=== PATIENT | male | born 1975 ===

== ENCOUNTER 2016-10-14 02:27 | Observation (INO) | payer SELFPAY ==
[2016-10-14] MEDS ORDERED: HYDROmorphone 2 mg/ml ISec IVP STA (03:26)
[2016-10-14] MEDS: Sodium Chloride 0.9% 1,000 ML IV SCH (03:37)
[2016-10-14 03:40] LABS: ADD MANUAL DIFF? NO
--- NOTE | 2016-10-14 03:41 | ED PDOC ---
Arrival/HPI - General Chief Complaint: Abdominal Pain Time Seen by Provider: 10/14/16 03:23 Historian: Patient - History of Present Illness Narrative History of Present Illness (Text): 10/14/16 03:25 Mahesh Ya is a 40 year old male who presents to the Emergency department complaining of RUQ pain. Patient reports associated subjective fever, chills, and shortness of breath. Patient denies any chest pain, nausea, vomiting, diarrhea, urinary symptoms, back pain, neck pain, headache, dizziness, or any other complaints. Symptom Onset: Gradual Symptom Course: Unchanged Activities at Onset: Rest, Light Context: Home Past Medical History - Provider Review Nursing Documentation Reviewed: Yes - Psychiatric Hx Substance Use: No Family/Social History - Physician Review Nursing Documentation Reviewed: Yes Family/Social History: No Known Family HX Smoking Status: n Hx Alcohol Use: Yes Hx Substance Use: No Allergies/Home Meds Allergies/Adverse Reactions: Allergies No Known Allergies Allergy (Verified 10/14/16 02:42) Home Medications: Home Meds Medication Instructions Recorded Confirmed No Known Home Med 10/14/16 10/14/16 Review of Systems - Physician Review All systems were reviewed & negative as marked: Yes - Review of Systems Constitutional: Fevers, Other (+chills) Eyes: Normal ENT: Normal Respiratory: SOB Cardiovascular: Normal. absent: Chest Pain Gastrointestinal: Abdominal Pain. absent: Diarrhea, Nausea, Vomiting Genitourinary Male: Normal. absent: Dysuria, Frequency, Hematuria, Urinary Output Changes Musculoskeletal: Normal. absent: Back Pain, Neck Pain Skin: Normal. absent: Rash Neurological: Normal. absent: Headache, Dizziness Endocrine: Normal Hemo/Lymphatic: Normal Psychiatric: Normal Physical Exam Vital Signs Reviewed: Yes Vital Signs Temp Pulse Resp BP Pulse Ox 10/14/16 05:13 86 18 126/86 96 10/14/16 02:36 97.9 F 98 H 18 132/70 98 Temperature: Afebrile Blood Pressure: Normal Pulse: Regular Respiratory Rate: Normal Appearance: Positive for: Well-Appearing, Non-Toxic, Comfortable Pain Distress: None Mental Status: Positive for: Alert and Oriented X 3 - Systems Exam Head: Present: Atraumatic, Normocephalic Pupils: Present: PERRL Extroacular Muscles: Present: EOMI Conjunctiva: Present: Normal Mouth: Present: Moist Mucous Membranes Neck: Present: Normal Range of Motion Respiratory/Chest: Present: Clear to Auscultation, Good Air Exchange. No: Respiratory Distress, Accessory Muscle Use Cardiovascular: Present: Regular Rate and Rhythm, Normal S1, S2. No: Murmurs Abdomen: Present: Tenderness (RUQ tenderness), Normal Bowel Sounds. No: Distention, Peritoneal Signs Back: Present: Normal Inspection Upper Extremity: Present: Normal Inspection. No: Cyanosis, Edema Lower Extremity: Present: Normal Inspection. No: Edema Neurological: Present: GCS=15, CN II-XII Intact, Speech Normal Skin: Present: Warm, Dry, Normal Color. No: Rashes Psychiatric: Present: Alert, Oriented x 3, Normal Insight, Normal Concentration Medical Decision Making ED Course and Treatment: 10/14/16 03:25 Impression: 40 year old male complaining of RUQ pain, fever, chills, and shortness of breath. Plan: -- CT Abdomen and Pelvis w/o contrast -- EKG -- Labs, cardiac enzymes, amylase, lipase, blood cultures, VBG -- UA -- IV fluids -- Zofran -- Dilaudid -- Reassess and disposition Prior Visits: Notes and results from previous visits were reviewed. Progress Notes: Reviewed EKG, NSR at [address]-segment elevations or depressions, no T-wave inversions, normal intervals. 10/14/16 05:09 Reviewed radiology, CT Abdomen and Pelvis shows: 1. Diverticulosis without definite CT evidence of diverticulitis. 2. Mild splenomegaly. 3. Incidental/non-acute findings are described above. 10/14/16 05:10 Case discussed with center medical director traffic sign erection supervisor, who is aware and agrees with plan, 10/14/16 05:[address] Singleton, who is aware and agrees with plan. Accepts pt in to hospitalist service. Pt will go to [facility] observation for abdominal pain and leukocytosis. - Lab Interpretations Microbiology Results: Microbiology Results 10/14/16 03:40 Blood-Venous Blood Culture - Preliminary NO GROWTH AFTER 48 HOURS 10/14/16 03:20 Blood-Venous Blood Culture - Preliminary NO GROWTH AFTER 48 HOURS Lab Results: 10/14/16 03:20 10/14/16 03:20 Lab Results 10/14/16 03:26: Urine Color Yellow, Urine Appearance Clear, Urine pH 6.0, Ur Specific [place] 1.015, Urine Protein Negative, Urine Glucose (UA) Negative, Urine Ketones Negative, Urine Blood Negative, Urine Nitrate Negative, Urine Bilirubin Negative, Urine Urobilinogen 0.2, Ur Leukocyte Esterase Negative 10/14/16 03:20: Sodium 140, Chloride 105, Potassium 3.7, Carbon Dioxide 26, Anion Gap 13, BUN 12, Creatinine 0.9, Est GFR ( Amer) > 60, Est GFR (Non- Af Amer) > 60, Random Glucose 110, Calcium 9.4, Total Bilirubin 0.7, AST 29, ALT 40, Alkaline Phosphatase 55, Lactate Dehydrogenase 359, Total Creatine Kinase 83, Troponin I < 0.01, Total Protein 7.6, Albumin 4.4, Globulin 3.2, Albumin/Globulin Ratio 1.4, Amylase 83, Lipase 184 10/14/16 03:20: pO2 47, VBG pH 7.33, VBG pCO2 50.0, VBG HCO3 26.4, VBG Total CO2 27.9, VBG O2 Sat (Calc) 86.5 H, VBG Base Excess -0.4 L, VBG Potassium 3.8, Sodium 141.0, Chloride 111.0 H, Glucose 108, Lactate 1.8, FiO2 21.0, Venous Blood Potassium 3.8 10/14/16 03:20: PT 10.0, INR 0.93, APTT 26.9 10/14/16 03:20: WBC 11.5 H, RBC 5.36, Hgb 14.7, Hct 41.9 L, MCV 78.2 L, MCH 27.4 , MCHC 35.1, RDW 13.3, Plt Count 203, MPV 12.4 H, Gran % 68.9 H, Lymph % (Auto) 21.8 L, [place] % (Auto) 5.4, Eos % (Auto) 3.4, Baso % (Auto) 0.5, Gran # 7.94 H, Lymph # 2.5, [place] # 0.6, Eos # 0.4, Baso # 0.06 I have reviewed the lab results: Yes - RAD Interpretation Narrative RAD Interpretations (Text): CT Abdomen and Pelvis shows: Lower thorax: No acute findings. ABDOMEN: Liver: Unremarkable. Gallbladder and bile ducts: No calcified stones. No ductal dilation. Pancreas: Unremarkable. No ductal dilation. Spleen: Mild splenomegaly. Adrenals: No mass. Kidneys and ureters: No renal calculi. No hydronephrosis. Stomach and bowel: Few scattered diverticula within colon. No associated inflammatory stranding. No definite mural thickening. No obstruction. Appendix: Normal caliber. No inflammation. PELVIS: Bladder: Unremarkable. No stones. Reproductive: Unremarkable as visualized. ABDOMEN and PELVIS: Intraperitoneal space: No significant fluid collection. No free air. Bones/joints: No acute fracture. Soft tissues: Tiny RIGHT inguinal hernia containing fat. Tiny umbilical hernia containing fat. Vasculature: Unremarkable. No abdominal aortic aneurysm. Lymph nodes: No pathologically enlarged lymph nodes. IMPRESSION: 1. Diverticulosis without definite CT evidence of diverticulitis. 2. Mild splenomegaly. 3. Incidental/non-acute findings are described above. Radiology Orders: 10/14/16 03:25 ABD & PELVIS W/O PO OR IV CONT [CT] Stat Restaurant Kitchen Manager: Radiologist - EKG Interpretation Interpreted by ED Physician: Yes Type: 12 lead EKG - Medication Orders Current Medication Orders: Discontinued Medications Acetaminophen (Tylenol 325mg Tab) 650 mg PO Q6H PRN PRN Reason: Fever >100.4 F Last Admin: 10/14/16 12:53 Dose: 650 mg Re-Assess: [facility] Pain/Vitals Document 10/14/16 13:53 EP (Rec: 10/14/16 14:12 EP [id number]) Sleep Is patient sleeping during reassessment? No Presence of Pain Presence of Pain No Famotidine (Pepcid) 20 mg PO BID [facility] Last Admin: 10/15/16 11:14 Dose: 20 mg Hydromorphone HCl (Dilaudid) 2 mg IVP STAT STA Stop: 10/14/16 03:27 Last Admin: 10/14/16 03:38 Dose: 2 mg Re-Assess: [facility] Pain Assessment Document 10/14/16 04:38 RD (Rec: 10/14/16 05:53 RD [id number]) Pain Reassessment Is this a pain reassessment? Yes Sleep Is patient sleeping during reassessment? No Presence of Pain Presence of Pain No Sodium Chloride (Sodium Chloride 0.9%) 1,000 mls @ 80 mls/hr IV [id number] [facility] Last Admin: 10/15/16 06:00 Dose: 80 mls/hr Ciprofloxacin (Cipro 400mg/200ml Dsw) 400 mg in 200 mls @ 133.3 mls/hr IVPB Q12 CINDY PRN Reason: Protocol Stop: 10/14/16 11:31 Last Admin: 10/14/16 10:17 Dose: 133.3 mls/hr Metronidazole (Flagyl) 500 mg in 100 mls @ 100 mls/hr IVPB Q8 CINDY PRN Reason: Protocol Last Admin: 10/15/16 06:00 Dose: 100 mls/hr Ketorolac Tromethamine (Toradol) 30 mg IVP Q8H PRN PRN Reason: Pain, severe (8-10) Last Admin: 10/14/16 18:19 Dose: 30 mg Re-Assess: [facility] Pain Assessment Document 10/14/16 19:19 EP (Rec: 10/14/16 22:03 EP [id number]) Pain Reassessment Is this a pain reassessment? Yes Sleep Is patient sleeping during reassessment? No Presence of Pain Presence of Pain No Morphine Sulfate (Morphine) 2 mg IVP Q6H PRN PRN Reason: Pain, severe (8-10) Last Admin: 10/14/16 08:51 Dose: 2 mg Re-Assess: [facility] Pain Assessment Document 10/14/16 09:51 EP (Rec: 10/14/16 10:18 EP [id number]) Pain Reassessment Is this a pain reassessment? Yes Sleep Is patient sleeping during reassessment? No Presence of Pain Presence of Pain No Ondansetron HCl (Zofran Inj) 4 mg IVP STAT STA Stop: 10/14/16 03:27 Last Admin: 10/14/16 03:38 Dose: 4 mg Ondansetron HCl (Zofran Inj) 8 mg IVP Q6H PRN PRN Reason: Nausea/Vomiting - Scribe Statement The provider has reviewed the documentation as recorded by the Scriberic Mccain All medical record entries made by the Scribe were at my direction and personally dictated by me. I have reviewed the chart and agree that the record accurately reflects my personal performance of the history, physical exam, medical decision making, and the department course for this patient. I have also personally directed, reviewed, and agree with the discharge instructions and disposition. Disposition/Present on Arrival - Present on Arrival Any Indicators Present on Arrival: No History of DVT/PE: No History of Uncontrolled Diabetes: No Urinary Catheter: No History of Decub. Ulcer: No History Surgical Site Infection Following: None - Disposition Have Diagnosis and Disposition been Completed?: Yes Diagnosis: Abdominal pain Disposition: HOSPITALIZED Disposition Time: 05:20 Condition: FAIR
[2016-10-14 03:45] LABS: BASO # 0.06 K/mm3 (0.0-2.0); BASO % 0.5 % (0.0-3.0); EOS # 0.4 (0.0-0.7); EOS % 3.4 % (1.5-5.0); GRAN # 7.94 (1.4-6.5); GRAN % 68.9 % (50.0-68.0); HEMATOCRIT 41.9 % (42.0-52.0); LYMPH # 2.5 (1.2-3.4); LYMPH % 21.8 % (22.0-35.0); MEAN CELL VOLUME 78.2 fL (80.0-105.0); MEAN CORPUSCULAR HEMOGLOBIN 27.4 pg (25.0-35.0); MEAN CORPUSCULAR HGB CONC 35.1 g/dl (31.0-37.0); MEAN PLATELET VOLUME 12.4 fl (7.0-11.0); MONO # 0.6 (0.1-0.6); MONO % 5.4 % (1.0-6.0); PLATELET COUNT 203 10^3/uL (120.0-450.0); RED CELL DISTRIBUTION WIDTH 13.3 % (11.5-14.5); WHITE BLOOD COUNT 11.5 10^3/ul (4.5-11.0)
[2016-10-14 03:57] LABS: VENOUS BLOOD GAS BASE EXCESS -0.4 mmol/L (0.0-2.0); VENOUS BLOOD PH 7.33 (7.32-7.43)
[2016-10-14 04:02] LABS: URINE BILIRUBIN NEGATIVE (NEGATIVE); URINE BLOOD NEGATIVE (NEGATIVE); URINE GLUCOSE (UA) NEGATIVE (NEGATIVE); URINE KETONE NEGATIVE (NEGATIVE); URINE LEUKOCYTE ESTERASE NEGATIVE Leu/uL (NEGATIVE); URINE PROTEIN NEGATIVE mg/dL (<30 mg/dL); URINE UROBILINOGEN 0.2 E.U./dL (<1 E.U./dL)
[2016-10-14 04:03] LABS: URINE APPEARANCE CLEAR (CLEAR); URINE COLOR YELLOW (YELLOW)
[2016-10-14 04:04] LABS: INR 0.93 (0.93-1.08); PARTIAL THROMBOPLASTIN TIME 26.9 Seconds (23.7-30.8)
[2016-10-14 04:08] LABS: ALB/GLOB RATIO 1.4 (1.1-1.8); ALKALINE PHOSPHATASE 55 U/L (38-133); ALT/SGPT 40 U/L (7-56); AMYLASE 83 U/L (35-125); AST/SGOT 29 U/L (15-59); BILIRUBIN,TOTAL 0.7 mg/dL (0.2-1.3); BLOOD UREA NITROGEN 12 mg/dL (7-21); CALCIUM 9.4 mg/dL (8.4-10.5); CARBON DIOXIDE 26 mmol/L (21-33); CHLORIDE 105 mmol/L (98-107); GFR AFRICAN-AMERICAN > 60; GLUCOSE,RANDOM 110 mg/dL (70-110); LIPASE 184 U/L (23-300); POTASSIUM 3.7 mmol/L (3.6-5.0); SODIUM 140 mmol/L (132-148); TOTAL PROTEIN 7.6 g/dL (5.8-8.3)
--- NOTE | 2016-10-14 04:39 | CT ---
EXAM: CT Abdomen and Pelvis Without Intravenous Contrast CLINICAL HISTORY: 40 years old, male; Pain; Abdominal pain; Generalized; Additional info: Abd pain TECHNIQUE: Axial computed tomography images of the abdomen and pelvis without intravenous contrast. This CT exam was performed using one or more of the following dose reduction techniques: automated exposure control, adjustment of the mA and/or kV according to patient size, and/or use of iterative reconstruction technique. Coronal and sagittal reformatted images were created and reviewed. COMPARISON: No relevant prior studies available. FINDINGS: Lower thorax: No acute findings. ABDOMEN: Liver: Unremarkable. Gallbladder and bile ducts: No calcified stones. No ductal dilation. Pancreas: Unremarkable. No ductal dilation. Spleen: Mild splenomegaly. Adrenals: No mass. Kidneys and ureters: No renal calculi. No hydronephrosis. Stomach and bowel: Few scattered diverticula within colon. No associated inflammatory stranding. No definite mural thickening. No obstruction. Appendix: Normal caliber. No inflammation. PELVIS: Bladder: Unremarkable. No stones. Reproductive: Unremarkable as visualized. ABDOMEN and PELVIS: Intraperitoneal space: No significant fluid collection. No free air. Bones/joints: No acute fracture. Soft tissues: Tiny RIGHT inguinal hernia containing fat. Tiny umbilical hernia containing fat. Vasculature: Unremarkable. No abdominal aortic aneurysm. Lymph nodes: No pathologically enlarged lymph nodes. IMPRESSION: 1. Diverticulosis without definite CT evidence of diverticulitis. 2. Mild splenomegaly. 3. Incidental/non-acute findings are described above.
[2016-10-14 04:54] LABS: TROPONIN I < 0.01 ng/mL
--- NOTE | 2016-10-14 05:33 | CP.PCM.HP ---
<Jose RAsad jenkins - Last Filed: 10/14/16 06:10> History of Present Illness - History of Present Illness History of Present Illness: This pt is a 40yo M w/ no PMHx (has not been to the dr in many years) who is coming to the hospital for a 2d history of RUQ pain. The patient states that it was intermittent, associated with nausea, and was dull in nature. He has also had loose stools, x4, for the past 2 days as well. he did not take anything to make it feel better. he came in today because it was too much to handle. This has never happened to him before. [place] recently [place], which he has been to many times as he is [place]. He admits to tactile fevers/chills. He denies HALE, CP, SOB, vomiting, dysuria/freq/ urg, or lower extremity pain swelling. Allergies: Denies Social: smokes marijuana, social drinker. no other illicit drugs; lives with . Surgeries: L Knee ACL repair Meds: None FamHx: denies In the ED they did a cat scan which showed diverticulosis without signs of diverticulitis; he had a WBC of 11.5. No fever. All other labs WNL. He was given 2mg of dilaudid at the time of my examination. Present on Admission - Present on Admission Any Indicators Present on Admission: No History of DVT/PE: No History of Uncontrolled Diabetes: No Urinary Catheter: No Decubitus Ulcer Present: No Review of Systems - Review of Systems All systems: reviewed and no additional remarkable complaints except Past Patient History - Past Social History Smoking Status: n - PSYCHIATRIC Hx Substance Use: No Meds Allergies/Adverse Reactions: Allergies Allergy/AdvReac Type Severity Reaction Status Date / Time No Known Allergies Allergy Verified 10/14/16 02:42 Physical Exam - Constitutional Appears: Non-toxic - Head Exam Head Exam: ATRAUMATIC - Eye Exam Eye Exam: EOMI, Normal appearance Pupil Exam: PERRL - ENT Exam ENT Exam: Mucous Membranes Moist - Neck Exam Neck exam: Positive for: Full Rom. Negative for: Lymphadenopathy - Respiratory Exam Respiratory Exam: Clear to Auscultation Bilateral, NORMAL BREATHING PATTERN. absent: Rales, Rhonchi, Wheezes - Cardiovascular Exam Cardiovascular Exam: REGULAR RHYTHM, +S1, +S2 - GI/Abdominal Exam GI & Abdominal Exam: Normal Bowel Sounds, Soft. absent: Tenderness - Rectal Exam Rectal Exam: Deferred - Extremities Exam Extremities exam: Positive for: full ROM. Negative for: calf tenderness - Back Exam Back exam: NORMAL INSPECTION. absent: CVA tenderness (L), CVA tenderness (R) - Neurological Exam Neurological exam: Alert, Normal Gait, Oriented x3 - Psychiatric Exam Psychiatric exam: Normal Affect, Normal Mood - Skin Skin Exam: Warm Additional comments: +Vitiligo Hands, arms Results - Vital Signs Recent Vital Signs: Last Vital Signs Temp 97.9 F 10/14/16 02:36 Pulse 86 10/14/16 05:13 Resp 18 10/14/16 05:13 BP 126/86 10/14/16 05:13 Pulse Ox 96 10/14/16 05:13 - Labs Result Diagrams: 10/14/16 03:20 10/14/16 03:20 Labs: Laboratory Results - last 24 hr 10/14/16 10/14/16 10/14/16 03:20 03:20 03:20 WBC 11.5 H RBC 5.36 Hgb 14.7 Hct 41.9 L MCV 78.2 L MCH 27.4 MCHC 35.1 RDW 13.3 Plt Count 203 MPV 12.4 H Gran % 68.9 H Lymph % (Auto) 21.8 L [place] % (Auto) 5.4 Eos % (Auto) 3.4 Baso % (Auto) 0.5 Gran # 7.94 H Lymph # 2.5 [place] # 0.6 Eos # 0.4 Baso # 0.06 PT 10.0 INR 0.93 APTT 26.9 pO2 47 VBG pH 7.33 VBG pCO2 50.0 VBG HCO3 26.4 VBG Total CO2 27.9 VBG O2 Sat (Calc) 86.5 H VBG Base Excess -0.4 L VBG Potassium 3.8 Sodium 141.0 Chloride 111.0 H Glucose 108 Lactate 1.8 FiO2 21.0 Potassium Carbon Dioxide Anion Gap BUN Creatinine Est GFR ( Amer) Est GFR (Non-Af Amer) Random Glucose Calcium Total Bilirubin AST ALT Alkaline Phosphatase Lactate Dehydrogenase Total Creatine Kinase Troponin I Total Protein Albumin Globulin Albumin/Globulin Ratio Amylase Lipase Venous Blood Potassium 3.8 Urine Color Urine Appearance Urine pH Ur Specific [place] Urine Protein Urine Glucose (UA) Urine Ketones Urine Blood Urine Nitrate Urine Bilirubin Urine Urobilinogen Ur Leukocyte Esterase 10/14/16 10/14/16 03:20 03:26 WBC RBC Hgb Hct MCV MCH MCHC RDW Plt Count MPV Gran % Lymph % (Auto) [place] % (Auto) Eos % (Auto) Baso % (Auto) Gran # Lymph # [place] # Eos # Baso # PT INR APTT pO2 VBG pH VBG pCO2 VBG HCO3 VBG Total CO2 VBG O2 Sat (Calc) VBG Base Excess VBG Potassium Sodium 140 Chloride 105 Glucose Lactate FiO2 Potassium 3.7 Carbon Dioxide 26 Anion Gap 13 BUN 12 Creatinine 0.9 Est GFR ( Amer) > 60 Est GFR (Non-Af Amer) > 60 Random Glucose 110 Calcium 9.4 Total Bilirubin 0.7 AST 29 ALT 40 Alkaline Phosphatase 55 Lactate Dehydrogenase 359 Total Creatine Kinase 83 Troponin I < 0.01 Total Protein 7.6 Albumin 4.4 Globulin 3.2 Albumin/Globulin Ratio 1.4 Amylase 83 Lipase 184 Venous Blood Potassium Urine Color Yellow Urine Appearance Clear Urine pH 6.0 Ur Specific [place] 1.015 Urine Protein Negative Urine Glucose (UA) Negative Urine Ketones Negative Urine Blood Negative Urine Nitrate Negative Urine Bilirubin Negative Urine Urobilinogen 0.2 Ur Leukocyte Esterase Negative Assessment & Plan - Assessment and Plan (Free Text) Assessment: 40yo M admitted for abdominal pain and diarrhea Abdominal Pain and diarrhea -Stool for ova/parasites, leukocytes, and C.Diff sent -please refer to CT scan report for full report -VSS; WBC of 11.5, all other labs WNL -contact precautions for diarrhea -f/u hepatitis panel, TSH, HbA1C, Lipid Panel -IV [place] and Cipro Prophylaxis SCD Pepcid Heart Healthy Diet Case Discussed with Dr. Areli Ugarte Decision To Admit - Pt Status Changed To: Hospital Disposition Of: Observation - . Bed Request Type: Med/Surg Admitting Physician: Kostas Singleton <Kostas Singleton - Last Filed: 10/25/16 20:51> Results - Vital Signs Recent Vital Signs: Last Vital Signs Temp 97.6 F 10/15/16 08:30 Pulse 82 10/15/16 08:30 Resp 20 10/15/16 08:30 BP 155/88 H 10/15/16 08:30 Pulse Ox 98 10/15/16 08:30 - Labs Result Diagrams: 10/15/16 06:30 10/15/16 08:40 Attending/Attestation - Attestation I have personally seen and examined this patient.: Yes I have fully participated in the care of the patient.: Yes I have reviewed all pertinent clinical information: Yes
[2016-10-14] MEDS ORDERED: Morphine 2 mg/ml ISec IVP PRN (06:21)
[2016-10-14] MEDS: metroNIDAZOLE IV 500 mg/100 ml 500 MG/100 ML BAG IVPB SCH ×3 (06:43→21:20)
[2016-10-14 08:49] LABS: CHOLESTEROL 88 mg/dL (130-200)
[2016-10-14 09:07] LABS: FREE T4 0.99 ng/dL (0.78-2.19)
[2016-10-14 09:21] LABS: THYROID STIMULATING HORMONE 2.41 mIU/mL (0.46-4.68)
[2016-10-14] MEDS ORDERED: Ciprofloxacin 400mg/200ml D5W 400 MG/200 ML BAG IVPB SCH (10:00)
--- NOTE | 2016-10-14 10:52 | CARD ---
APPROVED REPORT EKG Measurement Heart [id number] <Conclusion> Normal sinus rhythm Normal ECG
--- NOTE | 2016-10-14 14:58 | RAD ---
PROCEDURE: Radiographs of the Chest and Right Ribs. HISTORY: RUQ pain/ sob COMPARISON: None available. TECHNIQUE: Frontal radiograph of the chest and multiple oblique radiographs of the right ribs were obtained. FINDINGS: RIGHT RIBS: No fracture or focal lesion visualized. LUNGS: Clear. PLEURA: No pneumothorax or pleural fluid. CARDIOVASCULAR: Normal sized heart. No pulmonary vascular congestion. OTHER FINDINGS: None. IMPRESSION: Unremarkable radiographs of the chest and right ribs. No right rib fracture.
[2016-10-14 15:17] VITALS: BMI 33.9
[2016-10-14 17:39] VITALS: RESP 20
--- NOTE | 2016-10-14 19:15 | US ---
HISTORY: RUQ pain COMPARISON: Comparison is made to the previous same-day CT of the abdomen and pelvis TECHNIQUE: Sonographic evaluation of the abdomen. FINDINGS: LIVER: Measures 17.3 cm. Heterogeneous with moderate increased echogenicity of the liver parenchyma. No mass. No intrahepatic bile duct dilatation. GALLBLADDER: Unremarkable. No gallstones. COMMON BILE DUCT: Measures 3.6 mm. No stones. No dilatation. PANCREAS: The pancreas is partially obscured by overlying bowel gas. No ductal dilatation seen. RIGHT KIDNEY: Measures 11.3 x 4 x 5.3cm. Normal echogenicity. No calculus, mass, or hydronephrosis. LEFT KIDNEY: Measures 11 x 6 x 6.5cm. Normal echogenicity. No calculus, mass, or hydronephrosis. SPLEEN: The liver is mildly enlarged measures 13.26 cm. AORTA: No aneurysmal dilatation. IVC: Unremarkable. OTHER FINDINGS: None. IMPRESSION: Mild hepato splenomegaly. Moderate hepatic steatosis. No evidence of cholelithiasis or cholecystitis. No evidence of hydronephrosis.
[2016-10-15] MEDS: metroNIDAZOLE IV 500 mg/100 ml 500 MG/100 ML BAG IVPB SCH (06:00)
[2016-10-15] MEDS: Sodium Chloride 0.9% 1,000 ML IV SCH (06:00)
[2016-10-15 07:13] LABS: ADD MANUAL DIFF? NO
[2016-10-15 07:21] LABS: BASO # 0.06 K/mm3 (0.0-2.0); BASO % 0.7 % (0.0-3.0); EOS # 0.4 (0.0-0.7); EOS % 4.1 % (1.5-5.0); GRAN # 5.66 (1.4-6.5); GRAN % 62.2 % (50.0-68.0); HEMATOCRIT 41.8 % (42.0-52.0); LYMPH # 2.2 (1.2-3.4); LYMPH % 24.3 % (22.0-35.0); MEAN CORPUSCULAR HEMOGLOBIN 26.9 pg (25.0-35.0); MEAN CORPUSCULAR HGB CONC 34.4 g/dl (31.0-37.0); MEAN PLATELET VOLUME 12.4 fl (7.0-11.0); MONO # 0.8 (0.1-0.6); MONO % 8.7 % (1.0-6.0); PLATELET COUNT 176 10^3/uL (120.0-450.0); RED CELL DISTRIBUTION WIDTH 13.2 % (11.5-14.5); WHITE BLOOD COUNT 9.1 10^3/ul (4.5-11.0)
[2016-10-15 08:31] VITALS: BP 155/88; PULSE 82; TEMP 97.6; O2SAT 98
[2016-10-15 09:03] LABS: ALB/GLOB RATIO 1.3 (1.1-1.8); ALKALINE PHOSPHATASE 51 U/L (38-133); ALT/SGPT 49 U/L (7-56); AST/SGOT 25 U/L (15-59); BILIRUBIN,TOTAL 0.8 mg/dL (0.2-1.3); BLOOD UREA NITROGEN 12 mg/dL (7-21); CARBON DIOXIDE 23 mmol/L (21-33); CHLORIDE 107 mmol/L (95-110); GFR AFRICAN-AMERICAN > 60; GLUCOSE,RANDOM 72 mg/dL (70-110); POTASSIUM 3.9 mmol/L (3.6-5.0); SODIUM 141 mmol/L (132-148); TOTAL PROTEIN 6.9 g/dL (5.8-8.3)
--- NOTE | 2016-10-15 14:47 | CP.PCM.DIS ---
<Ash Spears - Last Filed: 10/15/16 14:40> Provider - Provider Date of Admission: 10/14/16 05:16 Attending physician: Carl Mendoza MD Time Spent in preparation of Discharge (in minutes): 40 Hospital Course - Lab Results Lab Results: Micro Results 10/14/16 08:30 Stool Ova and Parasite Concentrate Exam - Final 10/14/16 08:00 Stool C. difficile Antigen & Toxin A,B (M - Final Most Recent Lab Values WBC 9.1 10^3/ul (4.5-11.0) D 10/15/16 06:30 RBC 5.36 10^6/uL (3.5-6.1) 10/15/16 06:30 Hgb 14.4 gm/dL (14.0-18.0) 10/15/16 06:30 Hct 41.8 % (42.0-52.0) L 10/15/16 06:30 MCV 78.0 fL (80.0-105.0) L 10/15/16 06:30 MCH 26.9 pg (25.0-35.0) 10/15/16 06:30 MCHC 34.4 g/dl (31.0-37.0) 10/15/16 06:30 RDW 13.2 % (11.5-14.5) 10/15/16 06:30 Plt Count 176 10^3/uL (120.0-450.0) 10/15/16 06:30 MPV 12.4 fl (7.0-11.0) H 10/15/16 06:30 Gran % 62.2 % (50.0-68.0) 10/15/16 06:30 Lymph % (Auto) 24.3 % (22.0-35.0) 10/15/16 06:30 Gilchrist % (Auto) 8.7 % (1.0-6.0) H 10/15/16 06:30 Eos % (Auto) 4.1 % (1.5-5.0) 10/15/16 06:30 Baso % (Auto) 0.7 % (0.0-3.0) 10/15/16 06:30 Gran # 5.66 (1.4-6.5) 10/15/16 06:30 Lymph # 2.2 (1.2-3.4) 10/15/16 06:30 Gilchrist # 0.8 (0.1-0.6) H 10/15/16 06:30 Eos # 0.4 (0.0-0.7) 10/15/16 06:30 Baso # 0.06 K/mm3 (0.0-2.0) 10/15/16 06:30 PT 10.0 Seconds (9.9-11.8) 10/14/16 03:20 INR 0.93 (0.93-1.08) 10/14/16 03:20 APTT 26.9 Seconds (23.7-30.8) 10/14/16 03:20 pO2 47 mm/Hg (30-55) 10/14/16 03:20 VBG pH 7.33 (7.32-7.43) 10/14/16 03:20 VBG pCO2 50.0 (40-60) 10/14/16 03:20 VBG HCO3 26.4 mmol/l (21-28) 10/14/16 03:20 VBG Total CO2 27.9 mmol.L (22-28) 10/14/16 03:20 VBG O2 Sat (Calc) 86.5 % (40-65) H 10/14/16 03:20 VBG Base Excess -0.4 mmol/L (0.0-2.0) L 10/14/16 03:20 VBG Potassium 3.8 mmol/L (3.6-5.2) 10/14/16 03:20 Sodium 141.0 mmol/L (132-148) 10/14/16 03:20 Chloride 111.0 mmol/L (98-107) H 10/14/16 03:20 Glucose 108 mg/dl (75-110) 10/14/16 03:20 Lactate 1.8 mmol/L (0.7-2.1) 10/14/16 03:20 FiO2 21.0 % 10/14/16 03:20 Sodium 141 mmol/L (132-148) 10/15/16 08:40 Potassium 3.9 mmol/L (3.6-5.0) 10/15/16 08:40 Chloride 107 mmol/L (95-110) 10/15/16 08:40 Carbon Dioxide 23 mmol/L (21-33) 10/15/16 08:40 Anion Gap 15 (10-20) 10/15/16 08:40 BUN 12 mg/dL (7-21) 10/15/16 08:40 Creatinine 1.1 mg/dL (0.5-1.4) 10/15/16 08:40 Est GFR ( Amer) > 60 10/15/16 08:40 Est GFR (Non-Af Amer) > 60 10/15/16 08:40 Random Glucose 72 mg/dL (70-110) 10/15/16 08:40 Hemoglobin A1c 5.2 % (4.2-6.5) 10/14/16 08:00 Calcium 9.0 mg/dL (8.4-10.5) 10/15/16 08:40 Total Bilirubin 0.8 mg/dL (0.2-1.3) 10/15/16 08:40 AST 25 U/L (15-59) 10/15/16 08:40 ALT 49 U/L (7-56) 10/15/16 08:40 Alkaline Phosphatase 51 U/L (38-133) 10/15/16 08:40 Lactate Dehydrogenase 359 U/L (333-699) 10/14/16 03:20 Total Creatine Kinase 83 U/L (35-230) 10/14/16 03:20 Troponin I < 0.01 ng/mL 10/14/16 03:20 Total Protein 6.9 g/dL (5.8-8.3) 10/15/16 08:40 Albumin 3.9 g/dL (3.0-4.8) 10/15/16 08:40 Globulin 3.0 gm/dL 10/15/16 08:40 Albumin/Globulin Ratio 1.3 (1.1-1.8) 10/15/16 08:40 Triglycerides 253 mg/dL (35-160) H 10/14/16 08:00 Cholesterol 88 mg/dL (130-200) L 10/14/16 08:00 LDL Cholesterol Direct 44 mg/dL (0-129) 10/14/16 08:00 HDL Cholesterol 27 mg/dL (29-60) L 10/14/16 08:00 Amylase 83 U/L (35-125) 10/14/16 03:20 Lipase 184 U/L (23-300) 10/14/16 03:20 Free T4 0.99 ng/dL (0.78-2.19) 10/14/16 08:00 TSH 3rd Generation 2.41 mIU/mL (0.46-4.68) 10/14/16 08:00 Venous Blood Potassium 3.8 mmol/L (3.6-5.2) 10/14/16 03:20 Urine Color Yellow (YELLOW) 10/14/16 03:26 Urine Appearance Clear (CLEAR) 10/14/16 03:26 Urine pH 6.0 (4.7-8.0) 10/14/16 03:26 Ur Specific Farwell 1.015 (1.005-1.035) 10/14/16 03:26 Urine Protein Negative mg/dL (<30 mg/dL) 10/14/16 03:26 Urine Glucose (UA) Negative mg/dL (NEGATIVE) 10/14/16 03:26 Urine Ketones Negative mg/dL (NEGATIVE) 10/14/16 03:26 Urine Blood Negative (NEGATIVE) 10/14/16 03:26 Urine Nitrate Negative (NEGATIVE) 10/14/16 03:26 Urine Bilirubin Negative (NEGATIVE) 10/14/16 03:26 Urine Urobilinogen 0.2 E.U./dL (<1 E.U./dL) 10/14/16 03:26 Ur Leukocyte Esterase Negative Marlo/uL (NEGATIVE) 10/14/16 03:26 Stool Occult Blood Negative (NEGATIVE) 10/14/16 08:00 Hepatitis A IgM Ab Negative (NEGATIVE) 10/14/16 08:00 Hep Bs Antigen Negative (NEGATIVE) 10/14/16 08:00 Hep B Core IgM Ab Negative (NEGATIVE) 10/14/16 08:00 Hepatitis C Antibody Negative (NEGATIVE) 10/14/16 08:00 - Hospital Course Hospital Course: 40yo M w/ no PMHx presents to the hospital for a 2d history of RUQ pain accompanied by diarrhea. In the ED the basic labwork was done. WBC was 11.5. CT abdomen showed diverticulosis with no sign of diverticulitis. Pt was admitted for severe abd pain and dehydration. Pain controlled. IVF administered. C. Diff and stool work up were both negative. Abd US showed mild hepatosplenomegally, mod hepatic steatosis, no cholithiasis, or hydronephrosis. CXR and Rib series did no show any acute findings. Pt seen and examined today, the patient states that he feels much better and his symptoms have resolved. No complaints. Denies any benitez, dizziness, f/c, sob, cp, abdominal pain, n/v/d, urinary changes. Diagnosis: Abd pain / Gastroeneteritis Discharge Exam - Head Exam Head Exam: ATRAUMATIC, NORMAL INSPECTION, NORMOCEPHALIC - Eye Exam Eye Exam: EOMI, Normal appearance, PERRL Pupil Exam: NORMAL ACCOMODATION, PERRL - Respiratory Exam Respiratory Exam: Clear to PA & Lateral, NORMAL BREATHING PATTERN, UNREMARKABLE. absent: Rales, Wheezes, Respiratory Distress - Cardiovascular Exam Cardiovascular Exam: REGULAR RHYTHM, RRR, +S1, +S2 - GI/Abdominal Exam GI & Abdominal Exam: Normal Bowel Sounds, Soft. absent: Distended, Tenderness - Neurological Exam Neurological exam: Alert, CN II-XII Intact, Normal Gait, Oriented x3, Reflexes Normal - Psychiatric Exam Psychiatric exam: Normal Affect, Normal Mood - Skin Skin Exam: Dry, Intact, Normal Color, Warm Discharge Plan - Follow Up Plan Condition: IMPROVED Disposition: HOME/ ROUTINE Patient education suggested?: Yes Instructions: Heart Healthy Diet (DC), Gastroenteritis (DC), Abdominal Pain (ED ) Additional Instructions: If your symptoms recur come back to the closest ED. Follow up with your PMD with in 1-2 days. <Carl Mendoza - Last Filed: 10/15/16 15:45> Provider - Provider Date of Admission: 10/14/16 05:16 Attending physician: Carl Mendoza MD Hospital Course - Lab Results Lab Results: Micro Results 10/14/16 08:30 Stool Ova and Parasite Concentrate Exam - Final 10/14/16 08:00 Stool C. difficile Antigen & Toxin A,B (M - Final Most Recent Lab Values WBC 9.1 10^3/ul (4.5-11.0) D 10/15/16 06:30 RBC 5.36 10^6/uL (3.5-6.1) 10/15/16 06:30 Hgb 14.4 gm/dL (14.0-18.0) 10/15/16 06:30 Hct 41.8 % (42.0-52.0) L 10/15/16 06:30 MCV 78.0 fL (80.0-105.0) L 10/15/16 06:30 MCH 26.9 pg (25.0-35.0) 10/15/16 06:30 MCHC 34.4 g/dl (31.0-37.0) 10/15/16 06:30 RDW 13.2 % (11.5-14.5) 10/15/16 06:30 Plt Count 176 10^3/uL (120.0-450.0) 10/15/16 06:30 MPV 12.4 fl (7.0-11.0) H 10/15/16 06:30 Gran % 62.2 % (50.0-68.0) 10/15/16 06:30 Lymph % (Auto) 24.3 % (22.0-35.0) 10/15/16 06:30 Gilchrist % (Auto) 8.7 % (1.0-6.0) H 10/15/16 06:30 Eos % (Auto) 4.1 % (1.5-5.0) 10/15/16 06:30 Baso % (Auto) 0.7 % (0.0-3.0) 10/15/16 06:30 Gran # 5.66 (1.4-6.5) 10/15/16 06:30 Lymph # 2.2 (1.2-3.4) 10/15/16 06:30 Gilchrist # 0.8 (0.1-0.6) H 10/15/16 06:30 Eos # 0.4 (0.0-0.7) 10/15/16 06:30 Baso # 0.06 K/mm3 (0.0-2.0) 10/15/16 06:30 PT 10.0 Seconds (9.9-11.8) 10/14/16 03:20 INR 0.93 (0.93-1.08) 10/14/16 03:20 APTT 26.9 Seconds (23.7-30.8) 10/14/16 03:20 pO2 47 mm/Hg (30-55) 10/14/16 03:20 VBG pH 7.33 (7.32-7.43) 10/14/16 03:20 VBG pCO2 50.0 (40-60) 10/14/16 03:20 VBG HCO3 26.4 mmol/l (21-28) 10/14/16 03:20 VBG Total CO2 27.9 mmol.L (22-28) 10/14/16 03:20 VBG O2 Sat (Calc) 86.5 % (40-65) H 10/14/16 03:20 VBG Base Excess -0.4 mmol/L (0.0-2.0) L 10/14/16 03:20 VBG Potassium 3.8 mmol/L (3.6-5.2) 10/14/16 03:20 Sodium 141.0 mmol/L (132-148) 10/14/16 03:20 Chloride 111.0 mmol/L (98-107) H 10/14/16 03:20 Glucose 108 mg/dl (75-110) 10/14/16 03:20 Lactate 1.8 mmol/L (0.7-2.1) 10/14/16 03:20 FiO2 21.0 % 10/14/16 03:20 Sodium 141 mmol/L (132-148) 10/15/16 08:40 Potassium 3.9 mmol/L (3.6-5.0) 10/15/16 08:40 Chloride 107 mmol/L (95-110) 10/15/16 08:40 Carbon Dioxide 23 mmol/L (21-33) 10/15/16 08:40 Anion Gap 15 (10-20) 10/15/16 08:40 BUN 12 mg/dL (7-21) 10/15/16 08:40 Creatinine 1.1 mg/dL (0.5-1.4) 10/15/16 08:40 Est GFR ( Amer) > 60 10/15/16 08:40 Est GFR (Non-Af Amer) > 60 10/15/16 08:40 Random Glucose 72 mg/dL (70-110) 10/15/16 08:40 Hemoglobin A1c 5.2 % (4.2-6.5) 10/14/16 08:00 Calcium 9.0 mg/dL (8.4-10.5) 10/15/16 08:40 Total Bilirubin 0.8 mg/dL (0.2-1.3) 10/15/16 08:40 AST 25 U/L (15-59) 10/15/16 08:40 ALT 49 U/L (7-56) 10/15/16 08:40 Alkaline Phosphatase 51 U/L (38-133) 10/15/16 08:40 Lactate Dehydrogenase 359 U/L (333-699) 10/14/16 03:20 Total Creatine Kinase 83 U/L (35-230) 10/14/16 03:20 Troponin I < 0.01 ng/mL 10/14/16 03:20 Total Protein 6.9 g/dL (5.8-8.3) 10/15/16 08:40 Albumin 3.9 g/dL (3.0-4.8) 10/15/16 08:40 Globulin 3.0 gm/dL 10/15/16 08:40 Albumin/Globulin Ratio 1.3 (1.1-1.8) 10/15/16 08:40 Triglycerides 253 mg/dL (35-160) H 10/14/16 08:00 Cholesterol 88 mg/dL (130-200) L 10/14/16 08:00 LDL Cholesterol Direct 44 mg/dL (0-129) 10/14/16 08:00 HDL Cholesterol 27 mg/dL (29-60) L 10/14/16 08:00 Amylase 83 U/L (35-125) 10/14/16 03:20 Lipase 184 U/L (23-300) 10/14/16 03:20 Free T4 0.99 ng/dL (0.78-2.19) 10/14/16 08:00 TSH 3rd Generation 2.41 mIU/mL (0.46-4.68) 10/14/16 08:00 Venous Blood Potassium 3.8 mmol/L (3.6-5.2) 10/14/16 03:20 Urine Color Yellow (YELLOW) 10/14/16 03:26 Urine Appearance Clear (CLEAR) 10/14/16 03:26 Urine pH 6.0 (4.7-8.0) 10/14/16 03:26 Ur Specific Farwell 1.015 (1.005-1.035) 10/14/16 03:26 Urine Protein Negative mg/dL (<30 mg/dL) 10/14/16 03:26 Urine Glucose (UA) Negative mg/dL (NEGATIVE) 10/14/16 03:26 Urine Ketones Negative mg/dL (NEGATIVE) 10/14/16 03:26 Urine Blood Negative (NEGATIVE) 10/14/16 03:26 Urine Nitrate Negative (NEGATIVE) 10/14/16 03:26 Urine Bilirubin Negative (NEGATIVE) 10/14/16 03:26 Urine Urobilinogen 0.2 E.U./dL (<1 E.U./dL) 10/14/16 03:26 Ur Leukocyte Esterase Negative Marlo/uL (NEGATIVE) 10/14/16 03:26 Stool Occult Blood Negative (NEGATIVE) 10/14/16 08:00 Hepatitis A IgM Ab Negative (NEGATIVE) 10/14/16 08:00 Hep Bs Antigen Negative (NEGATIVE) 10/14/16 08:00 Hep B Core IgM Ab Negative (NEGATIVE) 10/14/16 08:00 Hepatitis C Antibody Negative (NEGATIVE) 10/14/16 08:00 Attending/Attestation - Attestation I have personally seen and examined this patient.: Yes I have fully participated in the care of the patient.: Yes I have reviewed all pertinent clinical information, including history, physical exam and plan: Yes Notes (Text): 10/15/16 15:35 40 year old male with no significant past medical history who presented with complaint of RUQ pain and diarrhea after recent travel from [place]. Initial blood work showed mild leukocytosis of 11.5. He was started on fluids, antibiotics and analgesics. CT abd/pelvis showed diverticulosis. Abdominal US showed mild hepatomegaly and hepatic steatosis without cholelithiasis. CXR and rib series were negative. Stool study was also negative. Following day his symptoms have resolved. Symptoms possibly due to gastroenteritis. He is discharged home today. Follow up with pmd. Carl Mendoza MD Hospitalist.
== END 2016-10-15 16:09 | disposition home or self-care (01) ==
LOC: ED 02:27 → ERH 05:16 → 5RNO 07:06
PROVIDERS: ADMIT Hospitalist; ATTEND Internal Medicine
DX: K57.30 Diverticulosis of large intestine without perforation or abscess without bleeding (principal); E86.0 Dehydration; D72.829 Elevated white blood cell count, unspecified; K76.0 Fatty (change of) liver, not elsewhere classified; R16.0 Hepatomegaly, not elsewhere classified; F12.90 Cannabis use, unspecified, uncomplicated
CPT/HCPCS: 36415; 71101; 74176; 76700; 80053; 80061; 80074; 81003; 82150; 82438; 82550; 82803; 83036; 83615; 83690; 84302; 84311; 84439; 84443; 84484; 85025; 85610; 85730; 87040; 87045; 87177; 87209; 87324; 93005; 96365; 96374; 99285; G0328; G0378; J0744; J1170; J1885; J2270; J2405; J7040